=== PATIENT | female | born 1960 ===

== ENCOUNTER 2017-12-31 07:19 | Inpatient (IN) | payer MEDICAID, SELFPAY ==
[2017-12-31 07:31] VITALS: BMI 26.6
--- NOTE | 2017-12-31 08:11 | CP.PCM.HP ---
History of Present Illness - History of Present Illness History of Present Illness: 57 y/o female with pmhx of hypertension, presenting to [facility] today for scheduled total abdominal hysterectomy due to abnormal uterine bleeding. Pt previously had a hysterescopy D&C in 09/2016 and was diagnosed with simple hyperplasia. Pt was seen and evaluated by bed side this morning, does not have any complaints. denies any active bleeding, pelvic or abdominal pain, chest pain, sob, headache or dizziness. Present on Admission - Present on Admission Any Indicators Present on Admission: No Review of Systems - Review of Systems All systems: reviewed and no additional remarkable complaints except Past Patient History - Past Medical History & Family History Past Medical History?: Yes - Past Social History Smoking Status: Never Smoked - CARDIAC Hx Cardiac Disorders: Yes Hx Hypertension: Yes - PULMONARY Hx Respiratory Disorders: No - NEUROLOGICAL Hx Neurological Disorder: No - HEENT Hx HEENT Problems: No - RENAL Hx Chronic Kidney Disease: No - ENDOCRINE/METABOLIC Hx Endocrine Disorders: No - HEMATOLOGICAL/ONCOLOGICAL Hx Blood Disorders: Yes Hx Anemia: Yes Hx Blood Transfusions: Yes Hx Blood Transfusion Reaction: No - INTEGUMENTARY Hx Dermatological Problems: No - MUSCULOSKELETAL/RHEUMATOLOGICAL Hx Musculoskeletal Disorders: No Hx Falls: No - GASTROINTESTINAL Hx Gastrointestinal Disorders: No - GENITOURINARY/GYNECOLOGICAL Hx Genitourinary Disorders: No - PSYCHIATRIC Hx Emotional Abuse: No Hx Physical Abuse: No - SURGICAL HISTORY Hx Surgeries: Yes Hx Cholecystectomy: Yes - ANESTHESIA Hx Anesthesia: Yes Hx Anesthesia Reactions: Yes Hx Malignant Hyperthermia: No Has any member of the family had a problem w/ anesthesia?: Yes (N/V) Meds Allergies/Adverse Reactions: Allergies Allergy/AdvReac Type Severity Reaction Status Date / Time No Known Allergies Allergy Verified 12/31/17 08:09 Physical Exam - Constitutional Appears: Non-toxic, No Acute Distress - Head Exam Head Exam: NORMOCEPHALIC - Eye Exam Eye Exam: Normal appearance Pupil Exam: NORMAL ACCOMODATION - ENT Exam ENT Exam: Mucous Membranes Moist - Respiratory Exam Respiratory Exam: Clear to Auscultation Bilateral, NORMAL BREATHING PATTERN - Cardiovascular Exam Cardiovascular Exam: REGULAR RHYTHM, +S1, +S2 - GI/Abdominal Exam GI & Abdominal Exam: Normal Bowel Sounds, Soft. absent: Tenderness - Extremities Exam Extremities exam: Positive for: full ROM, normal inspection. Negative for: calf tenderness, pedal edema - Neurological Exam Neurological exam: Alert, CN II-XII Intact, Oriented x3, Reflexes Normal Results - Vital Signs Recent Vital Signs: Last Vital Signs Temp 98.1 F 12/31/17 07:58 Pulse 58 L 12/31/17 08:02 Resp 18 12/31/17 07:58 BP 126/76 12/31/17 07:58 Pulse Ox 98 12/31/17 07:58 - Labs Labs: Laboratory Results - last 24 hr 12/31/17 07:40 BBK History Checked Patient has bt Assessment & Plan - Assessment and Plan (Free Text) Assessment: 57 y/o female with history of abnormal uterine bleeding being admitted for total abdominal hysterectomy Plan: 1. total abdominal hysterectomy schedule for 9am -pain management as ordered -scds over night -incentive spirometer Q2hrs -cbc in the morning 2. HTN continue with lisinopril 5mg daily 3. Diet NPO for now advance as tolerated after procedure 4. DVT prophylaxis scd tonight encourage ambulation lovenox in the morning
[2017-12-31] MEDS ORDERED: Lactated Ringer's 1,000 ML IV ONE ×5 (09:00→14:15)
[2017-12-31] MEDS ORDERED: cefOXitin IV 1 gm in Dextrose 1 GM/50 ML BAG IVPB ONE (09:03)
[2017-12-31] MEDS ORDERED: Rocuronium 10 mg/ml (5 ml) ONE (09:04)
[2017-12-31] MEDS ORDERED: Propofol 10 mg/ml Inj (20 ML) ONE (09:04)
[2017-12-31] MEDS ORDERED: Midazolam 2 MG/2 ML VIAL ONE (09:04)
[2017-12-31] MEDS ORDERED: Succinylcholine 200 mg/10 ml Inj IV ONE (09:05)
[2017-12-31] MEDS ORDERED: HYDROmorphone 0.5 mg/0.5 ml ISec ONE (12:19)
[2017-12-31] MEDS ORDERED: Lactated Ringer's 1,000 ML IV SCH (12:30)
[2017-12-31] MEDS: HYDROmorphone 0.5 mg/0.5 ml ISec IVP PRN ×3 (12:37→13:07)
[2018-01-01 06:44] LABS: HEMOGLOBIN 11.7 g/dL (12.0-16.0); MEAN CORPUSCULAR HEMOGLOBIN 30.7 pg (27.0-31.0); MEAN CORPUSCULAR HGB CONC 34.9 g/dL (33.0-37.0); RBC 3.8 Mil/uL (3.80-5.20); RED CELL DISTRIBUTION WIDTH 12.6 % (11.5-14.5); WHITE BLOOD COUNT 11.1 K/uL (4.8-10.8)
[2018-01-01 07:06] LABS: ALBUMIN 3.2 g/dL (3.5-5.0); BLOOD UREA NITROGEN 12 mg/dl (7-17); CALCIUM 8.6 mg/dL (8.4-10.2); GFR AFRICAN-AMERICAN > 60; GFR NON-AFRICAN AMERICAN > 60
[2018-01-01 07:07] LABS: ALT/SGPT 272 U/L (9-52); AST/SGOT 237 U/L (14-36)
[2018-01-01 08:17] LABS: ALB/GLOB RATIO 1.1 (1.0-2.1)
--- NOTE | 2018-01-01 08:31 | CP.PCM.PN ---
Subjective - Date & Time of Evaluation Date of Evaluation: 01/01/18 Time of Evaluation: 08:00 - Subjective Subjective: Pt was seen using frisian interpretor Pt was seen and examined at bedside in presence of family, pt reports she slept all night however her pain was never fully well controlled. Reports her pain now is about a 8, pain is exacerbates by using the incentive spirometer but she understands she has to do it. she did not really eat last night because she was not hungry and was also a little noxious. nausea has resolved and she is hungry so will attempt to eat today and also move out of bed. Denies any sob, chest pain,dizziness, no bleeding noted on menstrual pad. No other complaints. Nurses notes reviewed for overnight events Objective - Vital Signs/Intake and Output Vital Signs (last 24 hours): Temp Pulse Resp BP Pulse Ox 100 F H 84 18 107/59 L 99 01/01/18 05:00 01/01/18 05:00 01/01/18 06:16 01/01/18 05:00 01/01/18 06:16 Intake and Output: 01/01/18 01/01/18 06:59 18:59 Intake Total 1440 Output Total 1300 Balance 140 - Medications Medications: Current Medications Ketorolac Tromethamine (Toradol) 30 mg IVP Q6 PRN PRN Reason: Pain, severe (8-10) Last Admin: 01/01/18 01:27 Dose: 30 mg Ketorolac Tromethamine (Toradol) 15 mg IVP Q6 PRN PRN Reason: Pain, moderate (4-7) Lisinopril (Zestril) 5 mg PO DAILY ANNA Metoclopramide HCl (Reglan) 10 mg IVP Q6 PRN PRN Reason: Nausea/Vomiting Morphine Sulfate (Morphine) 2 mg IVP STAT STA Stop: 01/01/18 08:24 Ondansetron HCl (Zofran Inj) 4 mg IVP Q4 PRN PRN Reason: Nausea/Vomiting - Labs Labs: 01/01/18 05:50 01/01/18 05:50 - Constitutional Appears: Non-toxic, No Acute Distress - ENT Exam ENT Exam: Mucous Membranes Moist - Respiratory Exam Respiratory Exam: Clear to Ausculation Bilateral, NORMAL BREATHING PATTERN. absent: Wheezes - Cardiovascular Exam Cardiovascular Exam: REGULAR RHYTHM, +S1, +S2 - GI/Abdominal Exam GI & Abdominal Exam: Soft, Tenderness, Normal Bowel Sounds Additional comments: Dressing covering incision remain in place, no signs of drainage. - Extremities Exam Extremities Exam: absent: Calf Tenderness, Pedal Edema - Neurological Exam Neurological Exam: Alert, Awake, Oriented x3 Assessment and Plan - Assessment and Plan (Free Text) Assessment: 57 y/o female with history of abnormal uterine bleeding admitted for total abdominal hysterectomy POD#1 Plan: 1.Total abdominal Hysterectomy POD#1 -[place] d/c this morning at 0800hrs, with about 350cc of urine in it -pt encouraged to get out of bed to chair today and attempt ambulating later in the day -pain management as ordered -reglan and zofran for nausea -continue with scds -incentive spirometer Q2hrs -cbc 11.7/33.5 2. HTN continue with lisinopril 5mg daily 3. Diet Heart Healthy 4. DVT prophylaxis scd tonight encourage ambulation lovenox to start POD#2
[2018-01-01] MEDS ORDERED: Oxycodone/Acetaminophen 5/325 mg Tab PO STA (12:40)
[2018-01-01] MEDS ORDERED: Oxycodone/Acetaminophen 5/325 mg Tab PO PRN (12:43)
--- NOTE | 2018-01-01 15:10 | CP.PCM.PN ---
Subjective - Date & Time of Evaluation Date of Evaluation: 01/01/18 Time of Evaluation: 13:00 - Subjective Subjective: Patient seen and examined by me today. Patient stated feeling a little dizzy after ambulating. Improved when lying supine. Patient states that she continues to have pain at incision site. Patient with minimal vaginal bleeding and passing flatus. Tolerating diet well. No nausea or vomiting present. Objective - Vital Signs/Intake and Output Vital Signs (last 24 hours): Temp Pulse Resp BP Pulse Ox 100 F H 87 20 114/67 98 01/01/18 05:00 01/01/18 10:29 01/01/18 08:00 01/01/18 10:29 01/01/18 08:00 Intake and Output: 01/01/18 01/01/18 06:59 18:59 Intake Total 1440 950 Output Total 1300 950 Balance 140 0 - Medications Medications: Current Medications Ibuprofen (Motrin Tab) 800 mg PO Q8 PRN PRN Reason: Pain, moderate (4-7) Last Admin: 01/01/18 14:06 Dose: 800 mg Ketorolac Tromethamine (Toradol) 30 mg IVP Q6 PRN PRN Reason: Pain, severe (8-10) Last Admin: 01/01/18 01:27 Dose: 30 mg Ketorolac Tromethamine (Toradol) 15 mg IVP Q6 PRN PRN Reason: Pain, moderate (4-7) Lisinopril (Zestril) 5 mg PO DAILY@1000 ANNA Last Admin: 01/01/18 10:29 Dose: 5 mg Metoclopramide HCl (Reglan) 10 mg IVP Q6 PRN PRN Reason: Nausea/Vomiting Ondansetron HCl (Zofran Inj) 4 mg IVP Q4 PRN PRN Reason: Nausea/Vomiting Oxycodone/Acetaminophen (Percocet 5/325 Mg Tab) 1 tab PO Q4 PRN PRN Reason: Pain, moderate (4-7) Stop: 01/04/18 12:44 Oxycodone/Acetaminophen (Percocet 5/325 Mg Tab) 2 tab PO Q4 PRN PRN Reason: Pain, severe (8-10) Stop: 01/04/18 12:44 - Labs Labs: 01/01/18 05:50 01/01/18 05:50 - Constitutional Appears: Well, No Acute Distress - Head Exam Head Exam: ATRAUMATIC - Respiratory Exam Respiratory Exam: Clear to Ausculation Bilateral - Cardiovascular Exam Cardiovascular Exam: REGULAR RHYTHM - GI/Abdominal Exam GI & Abdominal Exam: Soft, Normal Bowel Sounds Additional comments: Dressing removed, krystal in place, no drainage of erythema noted - Extremities Exam Extremities Exam: Normal Inspection Additional comments: non tender - Neurological Exam Neurological Exam: Alert, Awake, Oriented x3 Assessment and Plan (1) Anemia Status: Acute (2) Fibroid (bleeding) (uterine) Status: Acute (3) Menorrhagia Status: Acute - Assessment and Plan (Free Text) Assessment: Patient is a 57yo with h/o anemia, abnormal uterine bleeding, uterine fibroids and hyperplasia, s/p POD#1 after CHAYO/BSO Plan: May take Motrin 800mg every 8 hrs as needed for pain Continue Percocet if no relief with Motrin Patient may resume home meds but HOLD Lisinopril if BP <130/80 Patient may continue Regular Diet Ambulate with assistance if needed
--- NOTE | 2018-01-01 16:33 | OP ---
PROCEDURE DATE: 12/31/2017 PREOPERATIVE DIAGNOSES: Abnormal uterine bleeding with history of simple hyperplasia and uterine fibroids. POSTOPERATIVE DIAGNOSES: Abnormal uterine bleeding with history of simple hyperplasia and uterine fibroids. PROCEDURE: Total abdominal hysterectomy and bilateral salpingo-oophorectomy. TYPE OF ANESTHESIA: General. SPECIMEN: Uterus and cervix with bilateral tubes and ovaries. INDICATIONS: The patient had a history of abnormal uterine bleeding for which an endometrial biopsy was performed more than 1 year ago. It showed simple hyperplasia. The patient was prescribed therapy and was subsequently to follow up. She presented again one year later with recurrent abnormal uterine bleeding and repeat endometrial biopsy was negative; however, as the patient with persistent abnormal uterine bleeding, at 57 years old, she desired definitive treatment for which she was informed to undergo a total abdominal hysterectomy and bilateral salpingo-oophorectomy. Exam under anesthesia revealed small uterus with no nodularity. During the laparotomy, uterus with fibroid was noted and bilateral tubes and ovaries appeared grossly normal. DESCRIPTION OF PROCEDURE: The patient was taken to the operating room and given general anesthesia without difficulty. She was then prepped and draped in the dorsal supine position. The patient was given Mefoxin 1 g preoperatively for infection prophylaxis. The staple was used to perform a Pfannenstiel skin incision and this was carried down through the underlying fascia with the Bovie. The fascia was incised in the midline and extended laterally using the Bovie. The inferior aspect of the fascial incision was grasped with Monico clamps, elevated, and the underlying rectus muscles were dissected off with the Bovie, then bluntly. Attention was then turned to the superior aspect of the fascial incision, which in a similar fashion was dissected off with the Bovie, then bluntly. The rectus muscles were in the midline, the peritoneum was identified, tented up, and entered with Metzenbaum scissors. This incision was then extended laterally, superiorly, and inferiorly. Following this, moist laparotomy sponges were then used to pack the bowel away and O'Hieu-O'Jeter retractor was then placed in the incision. A bladder blade was then placed as well. The uterus was grasped with a suture to aide with elevation out of the pelvic cavity. The round ligament was then doubly clamped and cut and tied with 0 Vicryl suture and the vesicouterine peritoneum was dissected free to the midline. Following this, a left round ligament was then likewise doubly clamped and cut and tied and the vesicouterine peritoneum was then dissected free to the midline. The bladder was carefully dissected off of the lower uterine segments with a sponge stick. The right infundibulopelvic ligament was then clamped, cut and doubly ligated with 0 Vicryl suture followed by the left infundibulopelvic ligament. Erick clamps were then used to tie off the ovarian vessels bilaterally. The right uterine vessels and cardinal ligament were then doubly clamped and cut and tied with 0 Vicryl suture followed by the left uterine vessels, they were likewise clamped, cut and doubly ligated with 0 Vicryl. The bladder was then retracted inferiorly. The right uterosacral ligament was then cut and tied with 0 Vicryl. The step was repeated until the specimen was mobilized on the right side and then the left uterosacral ligament was likewise clamped, cut and tied with 0 Vicryl and again the step was repeated until the specimen was mobilized on the left side. The posterior segment of the vagina was then entered with the Bovie and the Paresh scissors were then used to remove the uterus and tubes, which was sent off the field to be sent to Pathology. The angle sutures were then placed at the site of the vaginal cuff using 0 Vicryl suture. The vaginal cuff was closed with 0 Vicryl running suture followed by [id number] suture using 0 Vicryl. A thorough inspection was then performed to ensure good hemostasis and SurgiSeal was then placed over the vaginal cuff stump. The angles of the cuff were then secured and tied to the remaining portion of the round ligaments to assist with support. All instruments, lap, and sponge were then removed at this time. The peritoneum was then closed with 2-0 Vicryl in a running fashion and three further horizontal mattress sutures were then placed with 2-0 Vicryl for reapproximation of the muscle layer. The fascia was then re-approximated using 0 Vicryl bilaterally to the midline and the Bovie was used to obtain good hemostasis on the subcutaneous fat. This layer was then also closed with four interrupted stitches using 3-0 plain suture and the skin was closed with krystal and covered with the sterile dressing. The patient tolerated the procedure well. Sponge, lap, and needle counts were all correct. Mefoxin 1 g was given preoperatively. The patient was then taken to the recovery room in stable condition. She will be given EXHIBITION DESIGNER for pain and will be kept in-house for postoperative monitoring. Due to the nature of this case, an assistant toddler teacher was requested. My assistant toddler teacher, Dr. Bolanos, was present for the entire procedure from the initial incision to the patient's transfer to the recovery room. He assisted with entry into the abdominal cavity with removal of the uterus, bilateral tubes, and ovary, closure of the vaginal cuff and closure of all layers of the abdominal wall. His assistance was vital to perform in this procedure. Andrew Montano MD
[2018-01-01] MEDS: Oxycodone/Acetaminophen 5/325 mg Tab PO PRN (19:46)
[2018-01-02] MEDS: Oxycodone/Acetaminophen 5/325 mg Tab PO PRN ×2 (01:11→07:37)
[2018-01-02 05:36] VITALS: O2SAT 98
[2018-01-02 08:54] VITALS: RESP 18
[2018-01-02 12:02] VITALS: BP 108/56; PULSE 74; TEMP 96.4
--- NOTE | 2018-01-02 12:41 | CP.PCM.DIS ---
Provider - Provider Date of Admission: 12/31/17 08:09 Attending physician: Andrew Montano MD Primary care physician: Abbey Acosta MD Time Spent in preparation of Discharge (in minutes): 30 Hospital Course - Lab Results Lab Results: Most Recent Lab Values WBC 11.1 K/uL (4.8-10.8) H D 01/01/18 05:50 RBC 3.80 Mil/uL (3.80-5.20) 01/01/18 05:50 Hgb 11.7 g/dL (12.0-16.0) L 01/01/18 05:50 Hct 33.4 % (34.0-47.0) L 01/01/18 05:50 MCV 88.0 fl (81.0-99.0) 01/01/18 05:50 MCH 30.7 pg (27.0-31.0) 01/01/18 05:50 MCHC 34.9 g/dL (33.0-37.0) 01/01/18 05:50 RDW 12.6 % (11.5-14.5) 01/01/18 05:50 Plt Count 237 K/uL (130-400) 01/01/18 05:50 Sodium 136 mmol/l (132-148) 01/01/18 05:50 Potassium 3.6 MMOL/L (3.6-5.0) 01/01/18 05:50 Chloride 99 mmol/L (98-107) 01/01/18 05:50 Carbon Dioxide 27 mmol/L (22-30) 01/01/18 05:50 Anion Gap 14 (10-20) 01/01/18 05:50 BUN 12 mg/dl (7-17) 01/01/18 05:50 Creatinine 0.6 mg/dl (0.7-1.2) L 01/01/18 05:50 Est GFR ( Amer) > 60 01/01/18 05:50 Est GFR (Non-Af Amer) > 60 01/01/18 05:50 POC Glucose (mg/dL) 150 mg/dL (65-110) H 12/31/17 20:42 Random Glucose 105 mg/dL (65-105) 01/01/18 05:50 Calcium 8.6 mg/dL (8.4-10.2) 01/01/18 05:50 Total Bilirubin 1.2 mg/dl (0.2-1.3) 01/01/18 05:50 AST 237 U/L (14-36) H D 01/01/18 05:50 ALT 272 U/L (9-52) H D 01/01/18 05:50 Alkaline Phosphatase 107 U/L (38-126) 01/01/18 05:50 Total Protein 6.3 G/DL (6.3-8.2) 01/01/18 05:50 Albumin 3.2 g/dL (3.5-5.0) L D 01/01/18 05:50 Globulin 3.1 gm/dL (2.2-3.9) 01/01/18 05:50 Albumin/Globulin Ratio 1.1 (1.0-2.1) 01/01/18 05:50 Blood Type O POSITIVE 12/31/17 07:40 Antibody Screen Negative 12/31/17 07:40 BBK History Checked Patient has bt 12/31/17 07:40 - Hospital Course Hospital Course: Pt was admitted s/p total abdominal hysterectomy with bilateral salpingo- oophorectomy,stayed in hospital for 2 days for pain control. By POD#1 pt was ambulating around floors, pt did have an episode of dizziness at first attempt of getting out of bed on POD#1 but resolved without any management. after that pt remain stable throughout stay, is being discharged home with strict instructions. Pt aware to return to clinic saturday01/08/18 for wound check. Discharge Exam - Head Exam Head Exam: ATRAUMATIC, NORMOCEPHALIC - Eye Exam Eye Exam: Normal appearance - ENT Exam ENT Exam: Mucous Membranes Moist - Respiratory Exam Respiratory Exam: Clear to PA & Lateral, NORMAL BREATHING PATTERN - Cardiovascular Exam Cardiovascular Exam: REGULAR RHYTHM, +S1, +S2 - GI/Abdominal Exam GI & Abdominal Exam: Normal Bowel Sounds, Soft, Tenderness Additional comments: mildly tender on palpation of site of incision - Extremities Exam Extremities exam: full ROM, normal inspection, pedal pulses present - Neurological Exam Neurological exam: Alert, CN II-XII Intact, Normal Gait, Oriented x3 Discharge Plan - Discharge Medications Prescriptions: Ibuprofen [Motrin Tab] 800 mg PO Q8 PRN #30 tab PRN Reason: Pain, Moderate (4-7) oxyCODONE/Acetaminophen [Percocet 5/325 mg Tab] 1 tab PO Q4 PRN #20 tab PRN Reason: Pain, Severe (8-10) - Follow Up Plan Condition: GOOD Disposition: HOME/ ROUTINE Instructions: Hysterectomy, Surgical Wound (DC), Wound Infection Additional Instructions: Please follow up with Dr. Angulo On Saturday01/08/18 at 1pm. Please arrive to [facility] clinic located at [address] [place] [address] 30mins prior to appointment. Keep incision area dry take pain medication as prescribed and ambulate No heavy lifting No sexual activity No exercising Referrals: Abbey Acosta MD [Primary Care Provider] - Adele-Andrew Bolanos MD [Staff Provider] -
== END 2018-01-02 15:40 | disposition home or self-care (01) | DRG 743 ==
LOC: H.OPSURG 07:19 → H.PEDS 08:09
PROVIDERS: ADMIT Obstetrics & Gynecology; ATTEND Obstetrics & Gynecology
PROC: 0UT97ZZ Resection of Uterus, Via Natural or Artificial Opening (ICD-10-PCS; 2017-12-31)
PROC: 0UT77ZZ Resection of Bilateral Fallopian Tubes, Via Natural or Artificial Opening (ICD-10-PCS; 2017-12-31)
PROC: 0UT27ZZ Resection of Bilateral Ovaries, Via Natural or Artificial Opening (ICD-10-PCS; principal; 2017-12-31 09:00)
DX: D25.9 Leiomyoma of uterus, unspecified (principal); N92.0 Excessive and frequent menstruation with regular cycle; I10 Essential (primary) hypertension; D50.0 Iron deficiency anemia secondary to blood loss (chronic)

== ENCOUNTER 2018-01-29 10:25 | Emergency (ER) | payer SELFPAY ==
[2018-01-29 10:26] VITALS: BMI 26.6
[2018-01-29 12:00] LABS: BASO % 0.6 % (0.0-2.0); EOS # 0.1 K/uL (0.0-0.7); EOS % 1.5 % (0.0-4.0); HEMOGLOBIN 12.7 g/dL (12.0-16.0); LYMPH # 1.9 K/uL (1.0-4.3); LYMPH % 27.3 % (20.0-40.0); MEAN CELL VOLUME 88.2 fl (81.0-99.0); MEAN CORPUSCULAR HEMOGLOBIN 31.1 pg (27.0-31.0); MEAN CORPUSCULAR HGB CONC 35.3 g/dL (33.0-37.0); MEAN PLATELET VOLUME 7.6 fl (7.2-11.7); MONO # 0.7 K/uL (0.0-0.8); MONO % 9.3 % (0.0-10.0); NEUT # 4.4 K/uL (1.8-7.0); NEUT % 61.3 % (50.0-75.0); NRBC % 0.1 % (0.0-0.0); RBC 4.06 Mil/uL (3.80-5.20); RED CELL DISTRIBUTION WIDTH 12.7 % (11.5-14.5); WHITE BLOOD COUNT 7.1 K/uL (4.8-10.8)
[2018-01-29 12:11] LABS: ALB/GLOB RATIO 1.1 (1.0-2.1); ALBUMIN 3.8 g/dL (3.5-5.0); ALT/SGPT 23 U/L (9-52); AST/SGOT 28 U/L (14-36); BLOOD UREA NITROGEN 18 mg/dl (7-17); CALCIUM 9.4 mg/dL (8.4-10.2); GFR AFRICAN-AMERICAN > 60; GFR NON-AFRICAN AMERICAN > 60
[2018-01-29 12:16] LABS: PROTHROMBIN TIME 11.2 Seconds (9.8-13.1)
[2018-01-29] MEDS ORDERED: Sodium Chloride 0.9% 1,000 ML IV STA (13:09)
--- NOTE | 2018-01-29 13:29 | ED PDOC ---
HPI: Female Pain Time Seen by Provider: 01/29/18 10:59 Chief Complaint (Nursing): Female Genitourinary Chief Complaint (Provider): Vaginal Bleeding and Abdominal Pain History Per: Patient History/Exam Limitations: no limitations Onset/Duration Of Symptoms: Days (x1) Current Symptoms Are (Timing): Still Present Additional Complaint(s): 57 y/o female with a PMHx of HTN and anemia presenting for evaluation of vaginal bleeding and lower abdominal pain x1 day. Patient reports she had a total hysterectomy on 12/31/[address] Montano. Patient also reports she took Motrin prior to arrival. PMD: Sarath Giraldo Past Medical History Reviewed: Historical Data, Nursing Documentation, Vital Signs Vital Signs: Last Vital Signs Temp 98.4 F 01/29/18 10:40 Pulse 86 01/29/18 10:40 Resp 19 01/29/18 10:40 BP 146/72 01/29/18 10:40 Pulse Ox 98 01/29/18 10:40 - Medical History PMH: Anemia, HTN Denies: Chronic Kidney Disease - Surgical History Surgical History: Cholecystectomy Other surgeries: Total hysterectomy (12/31/17) - Family History Family History: States: Unknown Family Hx - Social History Current smoker - smoking cessation education provided: No Alcohol: None Drugs: Denies - Immunization History Hx Tetanus Toxoid Vaccination: No Hx Influenza Vaccination: Yes Hx Pneumococcal Vaccination: No - Home Medications Home Medications: Ambulatory Orders Medication Instructions Recorded Lisinopril [Zestril] 5 mg PO DAILY 12/31/17 Ibuprofen [Motrin Tab] 800 mg PO Q8 PRN #30 tab 01/02/18 oxyCODONE/Acetaminophen [Percocet 1 tab PO Q4 PRN #20 tab 01/02/18 5/325 mg Tab] Nitrofurantoin Macrocrystals 100 mg PO BID #14 cap 01/29/18 [Macrobid] - Allergies Allergies/Adverse Reactions: Allergies Allergy/AdvReac Type Severity Reaction Status Date / Time No Known Allergies Allergy Verified 01/29/18 10:53 Review of Systems ROS Statement: Except As Marked, All Systems Reviewed And Found Negative Gastrointestinal: Positive for: Abdominal Pain Genitourinary Female: Positive for: Vaginal Bleeding Physical Exam - Reviewed Nursing Documentation Reviewed: Yes Vital Signs Reviewed: Yes - Physical Exam Appears: Positive for: Non-toxic, No Acute Distress Head Exam: Positive for: ATRAUMATIC, NORMAL INSPECTION, NORMOCEPHALIC Skin: Positive for: Normal Color, Warm, Dry Eye Exam: Positive for: EOMI, Normal appearance, PERRL ENT: Positive for: Normal ENT Inspection Neck: Positive for: Normal, Painless ROM, Supple Cardiovascular/Chest: Positive for: Regular Rate, Rhythm Respiratory: Positive for: Normal Breath Sounds. Negative for: Respiratory Distress Gastrointestinal/Abdominal: Positive for: Soft, Tenderness (superpubic), Distended, Other (well healed lower abdominal scar, clean, dry, intact) Back: Positive for: Normal Inspection. Negative for: L CVA Tenderness, R CVA Tenderness, Vertebral Tenderness Extremity: Positive for: Normal ROM. Negative for: Pedal Edema, Deformity Neurologic/Psych: Positive for: Alert, Oriented. Negative for: Motor/Sensory Deficits - Laboratory Results Result Diagrams: 01/29/18 11:44 01/29/18 11:44 - ECG O2 Sat by Pulse Oximetry: 98 (RA) Pulse Ox Interpretation: Normal Medical Decision Making Medical Decision Making: Impression: Vaginal bleeding and abdominal pain Plan: -CT abdomen and pelvis w/ IV contrast -CMP -CBC w/ differential -PTT/PT -1LNS -Urine C&S -Urinalysis -Transvaginal US -Reevaluation 16:47 CT ABD/PEL FINDINGS: LOWER THORAX: Unremarkable. LIVER: Hepatic steatosis. 1.4 cm hepatic dome cyst. Too small to characterize inferior right hepatic lobe hypodensity (series 3, image 63). No gross lesion or ductal dilatation. GALLBLADDER AND BILE DUCTS: Prior cholecystectomy. PANCREAS: Unremarkable. No gross lesion or ductal dilatation. SPLEEN: Unremarkable. ADRENALS: Unremarkable. No mass. KIDNEYS AND URETERS: Posterior left interpolar 2.5 cm lobulated hypo attenuating mass with trace patchy enhancement. No hydronephrosis. VASCULATURE: Unremarkable. No aortic aneurysm. BOWEL: Unremarkable. No obstruction. No gross mural thickening. APPENDIX: Normal appendix. PERITONEUM: Small fat containing umbilical hernia. Postsurgical changes in the anterior pelvic wall. No free fluid. No free air. LYMPH NODES: Unremarkable. No enlarged lymph nodes. BLADDER: Unremarkable. REPRODUCTIVE: Prior hysterectomy. BONES: No acute fracture. OTHER FINDINGS: None. IMPRESSION: -No acute abdominal pelvic pathology. -Recent hysterectomy with postsurgical changes in the anterior pelvic wall. No abscess, seroma or hematoma. -2.5 cm left posterior interpolar lobulated hypo attenuating mass with trace internal enhancement. CT/MRI renal protocol is recommended for further evaluation on a nonemergent basis. 18:[address] Herrera who thinks pt has atrophic vaginitis. Patient made aware of this and her UTI which was determined by her urine sample. She is advised to follow up with her PMD for ongoing treatment. Scribe Attestation: Documented by Ken Hogan and Gaby Rowland, acting as scribes for Apollo eRyna MD. Provider Scribe Attestation: All medical record entries made by the Scribe were at my direction and personally dictated by me. I have reviewed the chart and agree that the record accurately reflects my personal performance of the history, physical exam, medical decision making, and the department course for this patient. I have also personally directed, reviewed, and agree with the discharge instructions and disposition. 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
[2018-01-29] MEDS ORDERED: Iohexol 300 100 ML IJ ONE (14:32)
[2018-01-29] MEDS ORDERED: Sodium Chloride 0.9% 50 ML IV ONE (14:32)
[2018-01-29 16:36] LABS: SQUAMOUS EPITHIAL 2 /hpf (0-5); URINE BACTERIA RARE (<OCC); URINE BILIRUBIN NEGATIVE (NEGATIVE); URINE BLOOD LARGE (NEGATIVE); URINE CLARITY SLIGHTY-CLOUDY (Clear); URINE COLOR STRAW (YELLOW); URINE GLUCOSE (UA) NEG (Normal); URINE LEUKOCYTE ESTERASE MOD Leu/uL (Negative); URINE PROTEIN NEGATIVE (NEGATIVE); URINE UROBILINOGEN 0.2-1.0 mg/dL (0.2-1.0)
--- NOTE | 2018-01-29 16:49 | CT ---
PROCEDURE: CT Abdomen and Pelvis with contrast HISTORY: abd pain sp hysterectomy COMPARISON: None. TECHNIQUE: Contrast dose: 95 mL Omnipaque 300 Radiation dose: Total exam DLP = 486.5 mGy-cm. This CT exam was performed using one or more of the following dose reduction techniques: Automated exposure control, adjustment of the mA and/or kV according to patient size, and/or use of iterative reconstruction technique. FINDINGS: LOWER THORAX: Unremarkable. LIVER: Hepatic steatosis. 1.4 cm hepatic dome cyst. Too small to characterize inferior right hepatic lobe hypodensity (series 3, image 63). No gross lesion or ductal dilatation. GALLBLADDER AND BILE DUCTS: Prior cholecystectomy. PANCREAS: Unremarkable. No gross lesion or ductal dilatation. SPLEEN: Unremarkable. ADRENALS: Unremarkable. No mass. KIDNEYS AND URETERS: Posterior left interpolar 2.5 cm lobulated hypo attenuating mass with trace patchy enhancement. No hydronephrosis. VASCULATURE: Unremarkable. No aortic aneurysm. BOWEL: Unremarkable. No obstruction. No gross mural thickening. APPENDIX: Normal appendix. PERITONEUM: Small fat containing umbilical hernia. Postsurgical changes in the anterior pelvic wall. No free fluid. No free air. LYMPH NODES: Unremarkable. No enlarged lymph nodes. BLADDER: Unremarkable. REPRODUCTIVE: Prior hysterectomy. BONES: No acute fracture. OTHER FINDINGS: None. IMPRESSION: No acute abdominal pelvic pathology. Recent hysterectomy with postsurgical changes in the anterior pelvic wall. No abscess, seroma or hematoma. 2.5 cm left posterior interpolar lobulated hypo attenuating mass with trace internal enhancement. CT/MRI renal protocol is recommended for further evaluation on a nonemergent basis.
[2018-01-29 18:56] VITALS: BP 143/61; PULSE 69; RESP 17; TEMP 98.2; O2SAT 97
--- NOTE | 2018-01-29 19:24 | CP.PCM.PCO ---
Addendum Addendum: 01/29/18 19:19 Patient seen and examined w/ wood box maker Dot Castro RN incision s/p hysterectomy shows no induration, erythema, edema, or discharge Pelvic exam showed vaginal dryness, mild bleed and small clots Patient discharge w/ replens and macrobid Patient will be contacted for follow up
== END 2018-01-29 18:55 | disposition home or self-care (01) ==
LOC: H.ER 10:25
DX: N93.9 Abnormal uterine and vaginal bleeding, unspecified (principal); N39.0 Urinary tract infection, site not specified; I10 Essential (primary) hypertension; Z90.710 Acquired absence of both cervix and uterus
CPT/HCPCS: 74177; 80053; 81003; 85025; 85610; 86850; 86900; 87086; 99285; J2270; J7030; Q9967